=== PATIENT | female | born 1960 | race American Indian/Alaskan Native ===

== ENCOUNTER 2016-08-01 17:51 | Emergency (ER) | payer OTHER ==
[2016-08-01 21:32] LABS: Hematocrit 41.8 % (30.3-42.9); Hemoglobin 13.5 gm/dl (10.1-14.3); Mean Corpuscular HGB Conc 32 % (30-34); Mean Corpuscular Hemoglobin 28 pg (28-32); Mean Corpuscular Volume 85 fl (79-97); Platelet Count 385 K/mm3 (140-440); Red Blood Count 4.89 M/mm3 (3.65-5.03); Red Cell Distribution Width 13.7 % (13.2-15.2); White Blood Count 12.9 K/mm3 (4.5-11.0)
[2016-08-01 21:52] LABS: Alanine Aminotransferase 17 units/L (7-56); Albumin 4.1 g/dL (3.9-5); Albumin/Globulin Ratio 1.2 %; Alkaline Phosphatase 74 units/L (35-129); Anion Gap 14 mmol/L; Bilirubin,Total 0.4 mg/dL (0.1-1.2); Blood Urea Nitrogen 16 mg/dL (7-17); Calcium 9.3 mg/dL (8.4-10.2); Carbon Dioxide 28 mmol/L (22-30); Chloride 96.1 mmol/L (98-107); Glucose 99 mg/dL (65-100); Lipase 45 units/L (13-60); Potassium 3.1 mmol/L (3.6-5.0); Sodium 135 mmol/L (137-145); Total Protein 7.6 g/dL (6.3-8.2)
[2016-08-01 22:07] LABS: Bilirubin,Urine NEG (Negative); Blood,Urine NEG (Negative); Ketones,Urine NEG (Negative); Leukocyte Esterase,Urine NEG (Negative); Mucus,Urine 3+ /HPF; Nitrite,Urine NEG (Negative); Protein,Urine <15 mg/dL mg/dL (Negative); Urobilinogen,Urine < 2.0 mg/dL (<2.0)
[2016-08-01 22:41] LABS: Basophils % (Manual) 0 % (0.0-1.8); Blastocytes % (Manual) 0 %
[2016-08-01 22:43] LABS: Diff Status Complete; Platelet Estimate Consistent w Auto; RBC Morphology Normal
--- NOTE | 2016-08-01 23:03 | Emergency Department Report ---
- General Chief Complaint: Upper Respiratory Infection Stated Complaint: DEHYDRATED/COUGH/CANT KEEP FOOD DOWN Time Seen by Provider: 08/01/16 22:57 Source: patient Mode of arrival: Ambulatory Limitations: No Limitations - History of Present Illness Initial Comments: Patient presents with a cough 3 weeks. She states every time she begins to cough she vomits. She went to [facility] in outpatient clinic and was given cough medication which has not helped. She has recently been started on lisinopril however the cough started before that. She denies abdominal pain, recent travel, swelling in her legs, on any hormones. She states she does have a history of asthma when she was a child. She is an ex-smoker of 20 years ago. She admits to chills but denies fever. MD Complaint: cough, rhinorrhea -: Gradual Improves With: nothing Worsens With: nothing Associated Symptoms: chills, rhinorrhea, cough, vomiting (with coughing) Treatments Prior to Arrival: none - Related Data Previous Rx's Medication Instructions Recorded Last Taken Type Ciprofloxacin HCl [Cipro] 250 mg PO BID #14 tablet 04/02/14 Unknown Rx metroNIDAZOLE [Metronidazole] 500 mg PO BID #14 tablet 04/02/14 Unknown Rx Nitrofurantoin [place]/M-Cryst 100 mg PO Q12HR #14 capsule 08/18/14 Unknown Rx [Macrobid] ALBUTEROL Inhaler [ProAir HFA 2 puff IH QID PRN #1 inhalation 08/01/16 Unknown Rx Inhaler] Amoxicillin/K Clav Tab [Augmentin 1 tab PO Q12HR #20 tab 08/01/16 Unknown Rx 875 mg] Allergies Allergy/AdvReac Type Severity Reaction Status Date / Time codeine Allergy Unknown Verified 04/02/14 13:43 ED Review of Systems ROS: Stated complaint: DEHYDRATED/COUGH/CANT KEEP FOOD DOWN Other details as noted in HPI Constitutional: denies: chills, fever Eyes: denies: eye pain, eye discharge, vision change ENT: denies: ear pain, throat pain Respiratory: cough. denies: shortness of breath, wheezing Cardiovascular: denies: chest pain, palpitations Gastrointestinal: as per HPI, vomiting. denies: abdominal pain, nausea, diarrhea Genitourinary: denies: urgency, dysuria, discharge Musculoskeletal: denies: back pain, joint swelling, arthralgia Skin: denies: rash, lesions Neurological: denies: headache, weakness, paresthesias ED Past Medical Hx - Past Medical History Previous Medical History?: Yes Hx Hypertension: Yes Hx Diabetes: Yes (dIET CONTROLED) - Surgical History Past Surgical History?: Yes Additional Surgical History: hysterectomy, c section x 2 - Social History Smoking Status: Never Smoker Substance Use Type: None - Medications Home Medications: Home Medications Medication Instructions Recorded Confirmed Last Taken Type Ciprofloxacin HCl [Cipro] 250 mg PO BID #14 tablet 04/02/14 Unknown Rx metroNIDAZOLE [Metronidazole] 500 mg PO BID #14 tablet 04/02/14 Unknown Rx Nitrofurantoin [place]/M-Cryst 100 mg PO Q12HR #14 capsule 08/18/14 Unknown Rx [Macrobid] ALBUTEROL Inhaler [ProAir HFA 2 puff IH QID PRN #1 inhalation 08/01/16 Unknown Rx Inhaler] Amoxicillin/K Clav Tab [Augmentin 1 tab PO Q12HR #20 tab 08/01/16 Unknown Rx 875 mg] ED Physical Exam - General Limitations: No Limitations General appearance: alert, in no apparent distress - Head Head exam: Present: atraumatic, normocephalic - Eye Eye exam: Present: normal appearance - ENT ENT exam: Present: mucous membranes moist - Expanded ENT Exam Expanded Mouth exam: Present: normal external inspection Teeth exam: Present: normal inspection Throat exam: Positive: normal inspection - Neck Neck exam: Present: normal inspection, full ROM. Absent: tenderness, lymphadenopathy - Respiratory Respiratory exam: Present: normal lung sounds bilaterally, other (diminished throughout). Absent: respiratory distress, wheezes, rales, rhonchi - Cardiovascular Cardiovascular Exam: Present: regular rate, normal rhythm, other (pulses bilateral DP are within normal range. No redness or swelling to the lower extremities specifically calves). Absent: systolic murmur, diastolic murmur, rubs, gallop - GI/Abdominal GI/Abdominal exam: Present: soft, normal bowel sounds. Absent: tenderness - Extremities Exam Extremities exam: Present: normal inspection, normal capillary refill - Back Exam Back exam: Present: normal inspection, full ROM - Neurological Exam Neurological exam: Present: alert, oriented X3 - Psychiatric Psychiatric exam: Present: normal affect, normal mood - Skin Skin exam: Present: warm, dry, intact, normal color. Absent: rash ED Course Vital Signs 08/01/16 19:10 Temperature 97.9 F Pulse Rate 81 Respiratory 20 Rate Blood Pressure 116/74 O2 Sat by Pulse 99 Oximetry ED Medical Decision Making - Lab Data Result diagrams: 08/01/16 21:10 08/01/16 21:10 - Medical Decision Making Patient presents with a cough 3 weeks. She also admits to rhinitis. She does have a history of asthma as a child but does not have any medication at this time. I will give her Augmentin twice a day 10 days for URI, WBCs are 12.9. Chest x-ray is unremarkable to me however it has not been read by radiology. I informed her that she would be contacted if anything was abnormal. - Differential Diagnosis pna, asthma, uri Critical Care Time: No Critical care attestation.: If time is entered above; I have spent that time in minutes in the direct care of this critically ill patient, excluding procedure time. ED Disposition Clinical Impression: URI (upper respiratory infection), Asthma Disposition: DISCHARGED TO HOME OR SELFCARE Is pt being admited?: No Does the pt Need Aspirin: No Condition: Stable Instructions: Asthma (ED), Upper Respiratory Infection (ED), Reactive Airways Disease (ED) Additional Instructions: Follow back up with [place] outpatient clinic if symptoms worsen or do not resolve. F/u in the ED if unable to get appointment with [place] or shortness of breath, fever, chills, nausea, vomiting, chest pain. Prescriptions: ALBUTEROL Inhaler [ProAir HFA Inhaler] 2 puff IH QID PRN #1 inhalation PRN Reason: Shortness Of Breath Amoxicillin/K Clav Tab [Augmentin 875 mg] 1 tab PO Q12HR #20 tab Referrals: PRIMARY CARE, [Primary Care Provider] - 3-5 Days Time of Disposition: 23:38
[2016-08-02 00:33] VITALS: BP 142/91
--- NOTE | 2016-08-02 08:03 | XRay Report ---
ROUTINE CHEST, TWO VIEWS: HISTORY: Cough, shortness of breath. The trachea, heart, mediastinal contour, lung izaguirre and bony thorax are unremarkable. IMPRESSION: Unremarkable chest x-ray.
== END 2016-08-02 00:33 | disposition home or self-care (01) ==
LOC: ED 17:51
DX: J45.909 Unspecified asthma, uncomplicated (principal); J06.9 Acute upper respiratory infection, unspecified; I10 Essential (primary) hypertension; E11.9 Type 2 diabetes mellitus without complications; Z90.710 Acquired absence of both cervix and uterus; Z88.6 Allergy status to analgesic agent
CPT/HCPCS: 36415; 71020; 80053; 81001; 83690; 85007; 85025; 99283

== ENCOUNTER 2017-08-30 10:32 | Outpatient (CLI) | payer OTHER ==
--- NOTE | 2017-08-31 10:26 | Ultrasound Report ---
BILATERAL DIGITAL DIAGNOSTIC MAMMOGRAM with CAD and RIGHT BREAST ULTRASOUND: 08/30/17 11:15:00 CLINICAL: Right breast lump and pain. COMPARISON:None. FINDINGS: The breasts are almost entirely fatty.No mass, architectural distortion or suspicious calcifications . No mammographic finding in the upper outer right breast and a palpable marker where she feels a lump. Ultrasound of right breast in the upper-outer quadrant in the area of pain and lump demonstrated normal fatty and normal fibroglandular structures. No mass, cyst or shadowing. IMPRESSION: Negative mammogram and negative right breast ultrasound. BI-RADS CATEGORY: 1 - - Negative RECOMMENDATION: Clinical follow-up and routine mammographic screening in one year. ACR BI-RADS MAMMOGRAPHIC CODES: 0 = Needs additional imaging evaluation; 1 = Negative; 2 = Benign; 3 = Probably benign; 4 = Suspicious; 5 = Malignant; 6 = Known biopsy-proven malignancy COMMENT: 1. Dense breast tissue, i.e., adenosis, fibrocystic changes, etc., may obscure an underlying neoplasm. 2. Approximately 10% of cancers are not detected with mammography. 3. A negative mammography report should not delay biopsy if a clinically suspicious mass is present. COMMENT: Patient follow-up letters are generated by our [employer] application.
== END 2017-08-30 10:33 | disposition home or self-care (01) ==
LOC: MAMMO 10:32
PROVIDERS: ATTEND General Practice
DX: N63.10 Unspecified lump in the right breast, unspecified quadrant (principal); N64.4 Mastodynia
CPT/HCPCS: 77066

== ENCOUNTER 2019-06-06 03:17 | Emergency (ER) | payer SELFPAY ==
[2019-06-06 08:43] LABS: Creatine Kinase MB 1.4 ng/mL (0.0-4.0)
[2019-06-06 08:44] LABS: BUN/Creatinine Ratio 20; Blood Urea Nitrogen 12 mg/dL (7-17); Calcium 9.6 mg/dL (8.4-10.2); Hemolysis Index 6; INR 0.93 (0.87-1.13)
[2019-06-06 08:45] LABS: Partial Thromboplastin Time 29.8 Sec. (24.2-36.6); Thrombin Time 31.7 Sec. (15.1-19.6)
[2019-06-06 08:54] LABS: Alanine Aminotransferase < 5 units/L (7-56)
--- NOTE | 2019-06-06 09:07 | Cat Scan Report ---
CT HEAD WITHOUT CONTRAST INDICATION / CLINICAL INFORMATION: Stroke symptoms. TECHNIQUE: Axial imaging performed from the skull apex through the skull base without the use of cont rast. Sagittal and coronal reformatted images. All CT scans at this location are performed using CT dose reduction for ALARA by means of automated exposure control. COMPARISON: None available. FINDINGS: CEREBRAL PARENCHYMA: No significant abnormality. No acute territorial infarct. HEMORRHAGE: None. EXTRA-AXIAL SPACES: Extra-axial spaces superior to the cerebral hemispheres appear slightly prominent bilaterally. This is probably secondary to volume loss. Chronic subdural hygromas could be considere d. This is best demonstrated on the coronal images. VENTRICULAR SYSTEM: Normal in size and morphology for the patient's age. MIDLINE SHIFT OR HERNIATION: None. CEREBELLUM / BRAINSTEM: No significant abnormality. CALVARIUM: No significant abnormality. ORBITS: Normal as visualized. PARANASAL SINUSES / MASTOID AIR CELLS: Normal as visualized. SOFT TISSUES of HEAD: No significant abnormality. ADDITIONAL FINDINGS: None. IMPRESSION: No acute intracranial abnormality. Slightly prominent extra-axial spaces as described which is probab ly secondary to volume loss. See above. Signer Name: Hakeem Miller Jr, MD Signed: 06/06/2019 9:03 AM Workstation Name: [id number]
--- NOTE | 2019-06-06 09:23 | Emergency Department Report ---
ED Dizziness HPI - General Chief Complaint: Hyperglycemia Stated Complaint: HIGH BLOOD SUGAR Time Seen by Provider: 06/06/19 09:07 Source: patient Mode of arrival: Ambulatory Limitations: No Limitations - History of Present Illness Initial Comments: CC: "I think my blood pressure is up." HPI: Mrs. Fletcher is a very natalie 4-year-old female with history of vertigo, non-insulin dependent diabetes mellitus, hypertension who presents with several weeks of morning when room spinning sensation. She is concerned about elevated blood sugar. She was also concerned about elevated blood pressure. She does not have primary care due to lack of affordable health insurance on her job. She's had vertigo for several years. However it seems to have returned. When she wakes up in the morning room spins. She denies paralysis. She denies paresthesias. She denies visual disturbance. Throughout the day the vertigoon subsides. She does not have sporadic spontaneous moments of vertigo throughout the day. She checks her blood sugar sporadically. Her highest reading was 238 and middle day. MD Complaint: dizziness, lightheadedness -: week(s) (several weeks) Timing: waxing/waning Description: "room spinning" History of Same: Yes History of Trauma: No Severity: mild Improves With: other (resolve spontaneously) Worsens With: movement Associated Symptoms: denies other symptoms - Related Data Previous Rx's Medication Instructions Recorded Last Taken Type Ciprofloxacin HCl [Cipro] 250 mg PO BID #14 tablet 04/02/14 Unknown Rx metroNIDAZOLE [Metronidazole] 500 mg PO BID #14 tablet 04/02/14 Unknown Rx Nitrofurantoin [place]/M-Cryst 100 mg PO Q12HR #14 capsule 08/18/14 Unknown Rx [Macrobid] ALBUTEROL Inhaler (OR & NICU) 2 puff IH QID PRN #1 inhalation 08/01/16 Unknown Rx [ProAir HFA Inhaler] Amoxicillin/K Clav Tab [Augmentin 1 tab PO Q12HR #20 tab 08/01/16 Unknown Rx 875 mg] Allergies Allergy/AdvReac Type Severity Reaction Status Date / Time codeine Allergy Unknown Verified 08/30/17 10:33 ED Review of Systems ROS: Stated complaint: HIGH BLOOD SUGAR Other details as noted in HPI Comment: All other systems reviewed and negative Constitutional: denies: fever, malaise ENT: denies: ear pain Respiratory: denies: see HPI Cardiovascular: denies: chest pain Neurological: headache, vertigo. 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 - Medications Home Medications: Home Medications Medication Instructions Recorded Confirmed Last Taken Type Ciprofloxacin HCl [Cipro] 250 mg PO BID #14 tablet 04/02/14 Unknown Rx metroNIDAZOLE [Metronidazole] 500 mg PO BID #14 tablet 04/02/14 Unknown Rx Nitrofurantoin [place]/M-Cryst 100 mg PO Q12HR #14 capsule 08/18/14 Unknown Rx [Macrobid] ALBUTEROL Inhaler (OR & NICU) 2 puff IH QID PRN #1 inhalation 08/01/16 Unknown Rx [ProAir HFA Inhaler] Amoxicillin/K Clav Tab [Augmentin 1 tab PO Q12HR #20 tab 08/01/16 Unknown Rx 875 mg] ED Physical Exam - General Limitations: No Limitations General appearance: alert, in no apparent distress, other (smiling pleasant appears well and comfortable) - Head Head exam: Present: atraumatic, normocephalic - Eye Eye exam: Present: normal appearance. Absent: scleral icterus, conjunctival injection, nystagmus - ENT ENT exam: Present: mucous membranes moist - Neck Neck exam: Present: normal inspection, full ROM - Respiratory Respiratory exam: Present: normal lung sounds bilaterally. Absent: respiratory distress, wheezes, rales, rhonchi - Cardiovascular Cardiovascular Exam: Present: regular rate, normal rhythm, normal heart sounds. Absent: systolic murmur, diastolic murmur, rubs, gallop - GI/Abdominal GI/Abdominal exam: Present: soft, normal bowel sounds. Absent: distended, tenderness, guarding, rebound - Extremities Exam Extremities exam: Present: normal inspection - Neurological Exam Neurological exam: Present: alert, oriented X3 - Expanded Neurological Exam Expanded Patient oriented to: Present: person, place Speech: Present: fluid speech Cranial nerves: EOM's Intact: Normal Cerebellar function: Finger to Nose: Normal Sensory exam: Upper Extremity Light Touch: Normal Motor strength exam: RUE: 5, LUE: 5, RLE: 5, LLE: 5 Best Eye Response ([place]): (4) open spontaneously Best Motor Response ([place]): (6) obeys commands Best Verbal Response ([place]): (5) oriented [place] Total: 15 - Psychiatric Psychiatric exam: Present: normal affect, normal mood - Skin Skin exam: Present: warm, dry, intact, normal color. Absent: rash ED Course Vital Signs 06/06/19 06/06/19 03:26 07:25 Temperature 98.3 F Pulse Rate 67 61 Respiratory 20 18 Rate Blood Pressure 167/107 Blood Pressure 191/123 [Right] O2 Sat by Pulse 99 99 Oximetry ED Medical Decision Making - Lab Data Result diagrams: 06/06/19 08:03 Laboratory Results - last 24 hr 06/06/19 06/06/19 06/06/19 03:32 08:03 08:03 PT 12.6 INR 0.93 APTT 29.8 Thrombin Time 31.7 H Sodium 138 Potassium 4.3 Chloride 102.5 Carbon Dioxide 21 L Anion Gap 19 BUN 12 Creatinine 0.6 L Estimated GFR > 60 BUN/Creatinine Ratio 20 Glucose 98 POC Glucose 107 H Calcium 9.6 Magnesium 2.10 Total Bilirubin 0.40 AST 17 ALT < 5 L Alkaline Phosphatase 104 Total Creatine Kinase 136 H CK-MB (CK-2) 1.4 CK-MB (CK-2) Rel Index 1.0 Troponin T < 0.010 Total Protein 8.0 Albumin 4.0 Albumin/Globulin Ratio 1.0 TSH Salicylates Acetaminophen Plasma/Serum Alcohol 06/06/19 06/06/19 06/06/19 08:03 08:03 08:03 PT INR APTT Thrombin Time Sodium Potassium Chloride Carbon Dioxide Anion Gap BUN Creatinine Estimated GFR BUN/Creatinine Ratio Glucose POC Glucose Calcium Magnesium Total Bilirubin AST ALT Alkaline Phosphatase Total Creatine Kinase CK-MB (CK-2) CK-MB (CK-2) Rel Index Troponin T Total Protein Albumin Albumin/Globulin Ratio TSH 1.440 Salicylates < 0.3 L Acetaminophen < 5.0 L Plasma/Serum Alcohol 06/06/19 08:03 PT INR APTT Thrombin Time Sodium Potassium Chloride Carbon Dioxide Anion Gap BUN Creatinine Estimated GFR BUN/Creatinine Ratio Glucose POC Glucose Calcium Magnesium Total Bilirubin AST ALT Alkaline Phosphatase Total Creatine Kinase CK-MB (CK-2) CK-MB (CK-2) Rel Index Troponin T Total Protein Albumin Albumin/Globulin Ratio TSH Salicylates Acetaminophen Plasma/Serum Alcohol < 0.01 - Medical Decision Making 1. Benign positional vertigo: Recommended [id number] meclizine. I do not suspect TIA or intracranial lesion such as tumor 2. Hypertension: Referral to outside clinic which should be affordable for long-term management 3. Diabetes mellitus: Patient is doing well with controlling blood sugar with diet. I gave her additional verbal and written education regarding diabetes diet Critical care attestation.: If time is entered above; I have spent that time in minutes in the direct care of this critically ill patient, excluding procedure time. ED Disposition Clinical Impression: Benign positional vertigo, Hypertensive urgency, Diabetes mellitus Disposition: TO HOME OR SELFCARE Is pt being admited?: No Does the pt Need Aspirin: No Condition: Stable Instructions: Diabetes Mellitus Type 2 in Adults (ED), Hypertension (ED) Referrals: BRADY RUSSELL MD [Staff Physician] - 3-5 Days
[2019-06-06] MEDS ORDERED: MECLIZINE 25 MG TAB PO ONE (09:24)
[2019-06-06] MEDS ORDERED: IBUPROFEN 800 MG TAB PO ONE (09:24)
[2019-06-06 09:54] VITALS: BP 149/90
== END 2019-06-06 09:59 | disposition home or self-care (01) ==
LOC: ED 03:17
DX: H81.10 Benign paroxysmal vertigo, unspecified ear (principal); I16.0 Hypertensive urgency; I10 Essential (primary) hypertension; E11.9 Type 2 diabetes mellitus without complications; Z90.710 Acquired absence of both cervix and uterus; Z87.891 Personal history of nicotine dependence; Z88.5 Allergy status to narcotic agent
CPT/HCPCS: 36415; 70450; 80053; 80320; 82550; 82553; 82962; 83735; 84443; 84484; 85610; 85670; 85730; 93005; 93010; G0480